=== PATIENT | female | born 1980 | race Caucasian/White ===

== ENCOUNTER 2016-07-25 07:59 | Emergency (ER) | payer MEDICAID ==
[~2016-07-25] VITALS: Ht 152.4 cm; Wt 69.1 kg
[2016-07-25 08:00] VITALS: BP 125/79
== END 2016-07-25 08:46 | disposition home or self-care (01) ==
LOC: ED 08:40
DX: K02.9 Dental caries, unspecified (principal); E03.9 Hypothyroidism, unspecified
CPT/HCPCS: 99283

== ENCOUNTER 2017-02-15 11:32 | Outpatient (CLI) | payer MEDICAID ==
[~2017-02-15] VITALS: Ht 152.4 cm; Wt 79.1 kg
[2017-02-15 12:22] VITALS: BP 117/64
== END 2017-02-15 12:54 | disposition home or self-care (01) ==
LOC: LDOP 11:32
PROVIDERS: ATTEND Obstetrics & Gynecology
DX: O09.523 Supervision of elderly multigravida, third trimester (principal); O36.8130 Decreased fetal movements, third trimester, not applicable or unspecified; O99.283 Endocrine, nutritional and metabolic diseases complicating pregnancy, third trimester; O99.333 Smoking (tobacco) complicating pregnancy, third trimester; E07.9 Disorder of thyroid, unspecified; F17.200 Nicotine dependence, unspecified, uncomplicated; Z3A.34 34 weeks gestation of pregnancy
CPT/HCPCS: 59025; 99201; G0463

== ENCOUNTER 2017-02-28 19:03 | Inpatient (IN) | payer MEDICAID ==
[~2017-02-28] VITALS: Ht 152.4 cm; Wt 78.2 kg
[2017-02-28 20:02] LABS: PATH.CAST-FLAG NOT PRESENT; SPERM-FLAG NOT PRESENT; SRC-FLAG NOT PRESENT; XTAL-FLAG NOT PRESENT; YLC-FLAG NOT PRESENT
[2017-02-28 20:13] LABS: DAU SCREEN DISCLAIMER
[2017-02-28 20:57] LABS: AMNI OBC PASS; AMNISURE POSITIVE (NEGATIVE)
[2017-02-28] MEDS ORDERED: OXYTOCIN 30U/ 0.9% NaCL 500ML 500 ML IV ONE (21:02)
[2017-02-28] MEDS ORDERED: OXYTOCIN 30U/ 0.9% NaCL 500ML 500 ML IV PRN (21:02)
[2017-02-28] MEDS ORDERED: D5%-LACTATED RINGERS 1,000 ML IV SCH (21:02)
[2017-02-28] MEDS ORDERED: MISOPROSTOL 200 MCG TABLET ONE (21:09)
[2017-02-28] MEDS ORDERED: OXYTOCIN 30U/ 0.9% NaCL 500ML 500 ML ONE (21:09)
[2017-02-28] MEDS ORDERED: NEWBORN KIT ONE (21:09)
[2017-02-28] MEDS ORDERED: LIDOCAINE 1%, 20ML ONE (21:10)
[2017-02-28] MEDS ORDERED: METOCLOPRAMIDE 5 MG/ML, 2ML IVPush PRN (21:30)
[2017-02-28] MEDS ORDERED: ONDANSETRON 2MG/ML, 2ML IVPush PRN (21:30)
[2017-02-28] MEDS ORDERED: TERBUTALINE 1 MG/ML, 1ML IVPush PRN (21:30)
[2017-02-28] MEDS ORDERED: SODIUM CITRATE/CITRIC ACID 30 ML UDC PO PRN (21:30)
[2017-02-28] MEDS ORDERED: CALCIUM CARBONATE 500 MG TAB.CHEW PO PRN (21:30)
[2017-02-28] MEDS ORDERED: FENTANYL PF 100 MCG/2ML IV PRN (21:30)
[2017-02-28] MEDS ORDERED: FENTANYL PF 100 MCG/2ML IVPush PRN (21:30)
[2017-02-28] MEDS: LACTATED RINGERS 1,000 ML IV SCH (21:34)
[2017-02-28 21:35] LABS: HEMATOCRIT 36.5 % (34.6-47.8); HEMOGLOBIN 12.4 g/dL (11.7-16.4); WHITE BLOOD COUNT 13.3 x10^3/uL (3.4-10)
[2017-03-01] MEDS: LACTATED RINGERS 1,000 ML IV SCH (03:11)
[2017-03-01] MEDS ORDERED: TERBUTALINE 1 MG/ML, 1ML ONE (05:26)
[2017-03-01] MEDS ORDERED: GLYCOPYRROLATE 0.4 MG/2 ML, 2ML ONE (05:40)
[2017-03-01] MEDS ORDERED: PROPOFOL 10 MG/ML, 20ML ONE (05:40)
[2017-03-01] MEDS ORDERED: OXYTOCIN 10 UNITS/ML, 1ML ONE ×2 (05:40→06:18)
[2017-03-01] MEDS ORDERED: PHENYLEPHRINE 10 MG/ML ONE (05:40)
[2017-03-01] MEDS ORDERED: SUCCINYLCHOLINE 20 MG/ML, 10ML ONE (05:40)
[2017-03-01] MEDS ORDERED: morphine SULFATE/PF 1 MG/ML, 10ML ONE (05:40)
[2017-03-01] MEDS ORDERED: EPHEDRINE 50 MG/ML, 1ML ONE (05:40)
[2017-03-01] MEDS ORDERED: CEFAZOLIN 1,000 MG ONE (05:40)
[2017-03-01] MEDS ORDERED: LIDOCAINE-MPF 2% ,5ML ONE (05:40)
[2017-03-01] MEDS ORDERED: ROCURONIUM 10MG/ML,5ML ONE (05:40)
[2017-03-01] MEDS ORDERED: WATER-INJECTION,STERILE 10 ML IV ONE (05:40)
[2017-03-01] MEDS ORDERED: BUPIVACAINE/PF 0.25% ONE (05:40)
[2017-03-01] MEDS ORDERED: ONDANSETRON 2MG/ML, 2ML ONE (06:22)
[2017-03-01] MEDS ORDERED: OXYTOCIN 30U/ 0.9% NaCL 500ML 500 ML ONE (07:06)
[2017-03-01] MEDS ORDERED: OXYTOCIN 30U/ 0.9% NaCL 500ML 500 ML IV SCH (07:10)
[2017-03-01] MEDS ORDERED: LACTATED RINGERS 1,000 ML IV SCH ×2 (07:10)
[2017-03-01] MEDS ORDERED: CALCIUM CARBONATE 500 MG TAB.CHEW PO PRN (07:30)
[2017-03-01] MEDS ORDERED: METHYLERGONOVINE 0.2 MG/ML IM PRN (07:30)
[2017-03-01] MEDS ORDERED: ONDANSETRON 2MG/ML, 2ML IV PRN (07:30)
[2017-03-01] MEDS ORDERED: ACETAMINOPHEN 325 MG TABLET PO PRN (07:30)
[2017-03-01] MEDS ORDERED: DIPH,PERTUSS(ACELL),TET VAC/PF NC IM-VACC PRN (07:30)
[2017-03-01] MEDS ORDERED: OXYcodone/APAP 5/325MG TABLET PO PRN (07:30)
[2017-03-01] MEDS: PRENATAL VIT/IRON/FA 1 EACH TABLET PO SCH (09:00)
[2017-03-01 09:10] VITALS: BP 91/56
[2017-03-01 13:00] VITALS: BP 105/67
[2017-03-01] MEDS: OXYcodone IR 5MG TABLET PO PRN ×3 (13:07→22:12)
[2017-03-01 14:33] LABS: HEMATOCRIT 35.6 % (34.6-47.8); HEMOGLOBIN 12.1 g/dL (11.7-16.4); WHITE BLOOD COUNT 18.5 x10^3/uL (3.4-10)
[2017-03-01 17:26] VITALS: BP 96/66
[2017-03-01 19:50] VITALS: BP 100/63
[2017-03-01] MEDS: DOCUSATE 100 MG CAPSULE PO PRN (22:12)
[2017-03-01 23:50] VITALS: BP 101/64
[2017-03-02] MEDS: IBUPROFEN 600 MG TABLET PO PRN ×3 (03:20→15:48)
[2017-03-02] MEDS: OXYcodone IR 5MG TABLET PO PRN ×4 (03:21→20:36)
[2017-03-02 03:30] VITALS: BP 106/64
[2017-03-02 08:00] VITALS: BP 93/57
[2017-03-02] MEDS: DOCUSATE 100 MG CAPSULE PO PRN ×2 (09:00→20:36)
[2017-03-02] MEDS: PRENATAL VIT/IRON/FA 1 EACH TABLET PO SCH (09:00)
[2017-03-02 20:20] VITALS: BP 119/79
[2017-03-02] MEDS ORDERED: SIMETHICONE 80 MG CHEW TAB PO PRN (21:30)
[2017-03-02] MEDS ORDERED: SIMETHICONE 125 MG CHEW TAB PO PRN ×2 (21:30→21:41)
[2017-03-03] MEDS: IBUPROFEN 600 MG TABLET PO PRN ×3 (00:56→15:53)
[2017-03-03] MEDS: OXYcodone IR 5MG TABLET PO PRN ×5 (00:56→15:53)
[2017-03-03] MEDS: SIMETHICONE 80 MG CHEW TAB PO PRN ×2 (00:56→08:54)
[2017-03-03 07:25] VITALS: BP 130/95
[2017-03-03] MEDS: PRENATAL VIT/IRON/FA 1 EACH TABLET PO SCH (08:54)
[2017-03-03] MEDS: DOCUSATE 100 MG CAPSULE PO PRN (08:54)
[2017-03-03] MEDS ORDERED: OXYC1TAB9 PO (16:20)
[2017-03-03] MEDS ORDERED: IBUP-1223 PO (16:21)
== END 2017-03-03 17:06 | disposition home or self-care (01) | DRG 765 ==
LOC: LDOP 19:03 → LDIP 21:01 → 2NW 03-01 09:04
PROVIDERS: ADMIT Obstetrics & Gynecology; ATTEND Obstetrics & Gynecology
PROC: 10D00Z1 Extraction of Products of Conception, Low, Open Approach (ICD-10-PCS; principal; 2017-03-01)
DX: O76 Abnormality in fetal heart rate and rhythm complicating labor and delivery (principal); O40.3XX0 Polyhydramnios, third trimester, not applicable or unspecified; E03.9 Hypothyroidism, unspecified; Z37.0 Single live birth; O99.284 Endocrine, nutritional and metabolic diseases complicating childbirth; F17.200 Nicotine dependence, unspecified, uncomplicated; O62.0 Primary inadequate contractions; O99.334 Smoking (tobacco) complicating childbirth; Z3A.36 36 weeks gestation of pregnancy
CPT/HCPCS: 36415; 80307; 81001; 82803; 84112; 85025; 86850; 86870; 86900; 86922; 86923; 87086; 89060; 90715; J0690; J2274; J2405; J2704; J3490; G0479; J0330; J2370; J2590; J2765; J3105; J7120; Q0114